=== PATIENT | female | born 1940 | race Caucasian/White ===

== ENCOUNTER → 2023-05-24 14:30 | Outpatient (REF) | payer MEDICARE, OTHER, SELFPAY ==
[2023-05-24 15:01] LABS: Urine Albumin Negative (Neg - Trace); Urine Bilirubin Negative (Negative); Urine Character Clear (Clear); Urine Color Yellow; Urine Glucose Negative (Negative); Urine Ketone Negative (Negative); Urine Leukocyte Trace (Negative); Urine Nitrite Negative (Negative); Urine Occult Blood 2+ (Negative); Urine Urobilinogen Negative (Neg - 1+)
[2023-05-24 15:08] LABS: Urine Bacteria Few (Negative)
[2023-05-24 15:09] LABS: Urine Red Blood Cell 26-30 /HPF (0-2)
== END ==
LOC: OLABP 14:30
PROVIDERS: ATTENDING PHYSICIAN Internal Medicine
DX: N39.0 Urinary tract infection, site not specified (principal)
CPT/HCPCS: 81003; 81015; 87086

== ENCOUNTER → 2023-06-16 12:22 | Outpatient (REF) | payer MEDICARE, OTHER, SELFPAY ==
[2023-06-16 14:36] LABS: Free T4 1.63 ng/dl (0.78-2.19)
== END ==
LOC: OLABP 12:22
PROVIDERS: ATTENDING PHYSICIAN Internal Medicine
DX: F03.90 Unspecified dementia, unspecified severity, without behavioral disturbance, psychotic disturbance, mood disturbance, and anxiety (principal)
CPT/HCPCS: 36415; 84439; 84443

== ENCOUNTER 2023-08-24 06:35 | Emergency (ER) | payer MEDICARE, OTHER, SELFPAY ==
[2023-08-24 06:35] VITALS: BMI 22.0
[2023-08-24 06:40] VITALS: BP 157/73
--- NOTE | 2023-08-24 06:42 | ED.GENMED ---
History of Present Illness
General
Chief Complaint: Fall
Source: patient
Exam Limitations: none
Time Seen by Provider: 08/24/23 06:40
Travel History
Have you had any contact with someone who has COVID-19?: Unable to Answer
Do you have any symptoms of coronavirus? Fever > 100 degrees, chills, cough, shortness of breath, sore throat, loss of taste or smell, muscle aches, or headache?: No
Symptoms:: head pain
History of Present Illness
History of Present Illness:
See MDM
Past History
Past History
ED Past Medical History: Asthma, HTN, Hypercholesterolemia, Hypothyroidism, Psychiatric and Other
ED Past Surgical History: None and Gynecological
Social History
Tobacco: Non-smoker
Alcohol: None
Drug: None
Personal: Single
Living: [facility]
Employment: Not employed
Phy Exam
Physical Exam
Physical Exam:
See MDM
Course
Orders/Labs/Results
Orders:
Orders
08/24/23 06:42
Electrocardiogram (*1) Urgent
Reason for Study: Fatigue / Weakness
CT Cervical Spine W/o Iv Contr Urgent
Comment:
Reason For Exam: fall, neck pain
CT Head W/o Iv Contrast Urgent
Comment:
Reason For Exam: fall, left forehead injury
EKG- Treatment ONCE
08/24/23 06:47
Complete Blood Count/With Diff Urgent
08/24/23 06:48
Basic Metabolic Panel Urgent
Abnormal Lab Results
08/24/23 08/24/23
06:47 06:48
MCV 80.1 L fL
(81.0-99.0)
Abs Immat Gran (auto) 0.1 H 10^3/uL
(0-0.05)
Immature Gran % 1.0 H %
(0-0.5)
BUN 18 H mg/dl
(7-17)
Creatinine 0.5 L mg/dL
(0.6-1.0)
08/24/23 06:47
08/24/23 06:48
Vital Signs
Initial and Last Documented VS:
Initial Vital Signs
Temp Pulse Resp BP Pulse Ox
98.2 F 57 16 157/73 98
08/24/23 06:40 08/24/23 06:40 08/24/23 06:40 08/24/23 06:40 08/24/23 06:40
Last Documented Vital Signs
Temp Pulse Resp BP Pulse Ox
98.2 F 55 16 144/72 95
08/24/23 06:40 08/24/23 07:00 08/24/23 06:40 08/24/23 07:00 08/24/23 07:00
MDM/Problems Addressed
Differential Diagnosis Includes:
HPI and MDM Narrative:
83-year-old female presenting for evaluation of a fall. This was unwitnessed. She does have a history of dementia. She apparently walked to the nurses station and they noticed a large hematoma to her left forehead. Patient cannot remember
falling. Patient does appear confused and disoriented but EMS stating that nursing staff indicating that she is at her baseline. She apparently is on Eliquis as well.
On exam, she is lying in bed comfortably. There is a cervical collar in place for protection. There is a hematoma to her left forehead. There is no evidence of eye injury. There is a small abrasion to her lower shoulder but she denies any pain
and there is also no bony tenderness in this area nor deformity or step-off.
Given age and mechanism of injury, will obtain CT head and neck. Given that it was unwitnessed, will obtain EKG and basic blood work
Physical exam
General: Well appearing and non-toxic. Lying in bed comfortably
HEENT: protecting airway. Hematoma to left forehead. Pupils equal reactive. EOMI
Neck: Cervical collar in place, supple
CV: No evidence of cyanosis. Regular rate and rhythm
Resp: No accessory muscle use
Abd: Non-distended
Extremities: No deformities. Small abrasion to left shoulder. No tenderness to palpation of all 4 extremities. No tenderness to hips or pelvis
Neuro: alert
Psych: Normal affect
Skin: Intact
Problems Addressed including Acute and Chronic Conditions affecting care:
1. Head injury
Acuity: acute
Prognosis: stable
Details: Will obtain CT head and neck
2. Unwitnessed fall
Acuity: acute
Prognosis: stable
Details: Will obtain EKG and basic
Updates
CT head and neck. Will discharge home
Differential Diagnosis (but not limited to): Skull fracture, hematoma, intracranial hemorrhage, cardiac arrhythmia, hyponatremia
Testing considered: Urinalysis but she denies symptoms and does not appear to be more confused than baseline
Drug therapy (if applicable): OTC meds, please see d/c instruction regarding Rx drugs
Amount and/or Complexity of Data Reviewed
Clinical info obtained from: Patient
External data reviewed: N/A
Labs I independently reviewed (but not limited to): Hemoglobin stable
Radiology: The CT scan was personally and independently reviewed. In addition, official CT report reviewed.
Pulse Ox: not hypoxic
EKG independently reviewed: Sinus bradycardia, normal axis, no STEMI
Independent Beauty Consultant: N/A
Critical Care: N/A
Risk of Complication:
Social Determinants of health: Good social support
Discussed with other providers: N/A
Escalation of Care includes Admit/Obs: After being observed in the Emergency Department, pt stable for discharge.
Occasional wrong word or 'sound a like' substitutions may have occurred due to the inherent limitations of voice recognition software. Read the chart carefully and recognize, using context, where substitutions have occurred.
*Critical Care Note
Total Time (30-74mins, 75-104mins- exclusive of procedures): Not Applicable
ED Attending Note
-
Portions of this chart may have been created with voice recognition software.� Occasional wrong word or��sound alike� substitutions may have occurred due to the inherent limitations of voice recognition software.
Discharge Plan
Departure
Patient Disposition: Home (Routine Discharge)
Date of Disposition: 08/24/23
Time of Disposition: 08:17
Patient with high blood pressure during this ER visit?: Yes
Discharge Problem:
Head injury
Instructions: BLOOD PRESSURE
Prescriptions:
No Action
tamsulosin [Flomax] 0.4 mg capsule
0.4 mg PO DAILY Qty: 20 0RF
quetiapine 25 mg Tablet
25 mg PO BID@1200,1800
fluoxetine 40 mg Capsule
40 mg PO DAILY
acetaminophen [Tylenol] 325 mg Tablet
650 mg PO Q4HPRN PRN (Reason: mild pain)
simvastatin 20 mg Tablet
20 mg PO QPM
levothyroxine [Synthroid] 125 mcg Tablet
125 mcg PO DAILY
docusate sodium [Colace] 100 mg Capsule
100 mg PO BID
Eliquis 5 mg Tablet
5 mg PO BID
memantine 21 mg Capsule,Sprinkle,Er 24hr
21 mg PO QPM
acetaminophen 500 mg Tablet
1,000 mg PO BID
cyanocobalamin (vitamin B-12) [Vitamin B-12] 500 mcg Tablet
1,000 mcg PO DAILY
cholecalciferol (vitamin D3) [Vitamin D3] 25 mcg (1,000 unit) Tablet
50 mcg PO DAILY
amlodipine [Norvasc] 5 mg Tablet
5 mg PO DAILY
montelukast [Singulair] 10 mg Tablet
10 mg PO DAILY
fenofibrate nanocrystallized [Tricor] 145 mg Tablet
145 mg PO DAILY
Referrals:
Vijay Joshi Jr., DO [Family Provider] -
Activity Restrictions/Additional Instructions:
Please return for any worsening symptoms.
You may return at any time if you have further concerns.
Please follow up with your doctor at the first available appointment, preferably this week.
Thank you for choosing [facility].
Interventions
Interventions:
*Risk Screen - Suicide Last Done: 08/24/23 06:40
*General Assessment Last Done: 08/24/23 06:40
*Neglect/Abuse Screening Last Done: 08/24/23 06:40
ED- Fall Risk Assessment Last Done: 08/24/23 07:09
*ED COVID-19 Vaccine History Last Done: 08/24/23 06:40
ED-Musculoskeletal Assessment Last Done: 08/24/23 07:09
ED- Neurological Assessment Last Done: 08/24/23 07:09
ED-Skin Assessment Last Done: 08/24/23 07:09
Discharge Date and Time
Print Language: EMIRATI
[2023-08-24 07:00] VITALS: BP 144/72
[2023-08-24 07:03] LABS: % Basophils 0.6 % (0-2); % Eosinophils 2.7 % (0-6); % Lymphocytes 29.2 % (20.5-51.1); % Monocytes 6.8 % (1.7-9.3); % Neutrophils 59.7 % (42.2-75.2); Absolute Eosinophils 0.1 10^3/uL (0-0.7); Absolute Immature Granulocytes 0.1 10^3/uL (0-0.05); Absolute Lymphocytes 1.4 10^3/uL (1.2-3.4); Absolute Monocytes 0.3 10^3/uL (0.1-0.6); Absolute Neutrophils 2.9 10^3/uL (1.4-6.5); Hematocrit 37.1 % (37.0-47.0); Hemoglobin 12.7 g/dL (12.0-16.0); Mean Corp Hgb Conc. 34.2 g/dL (33.0-37.0); Mean Corpuscular Hgb 27.4 pg (27.0-31.0); Mean Corpuscular Volume 80.1 fL (81.0-99.0); Mean Platelet Volume 9.8 fL (7.4-10.4); Nucleated Red Blood Cells % 0 %; Platelet Count 225 10^3/uL (130-400); Red Blood Cell Count 4.63 10^6/uL (4.20-5.40); Red Cell Dist. Width 14.4 % (11.5-14.5); White Blood Cell Count 4.8 10^3/uL (4.8-10.8)
[2023-08-24 07:33] LABS: Blood Urea Nitrogen 18 mg/dl (7-17); Carbon Dioxide 24 mmol/L (22-30); Chloride 107 mmol/L (98-107); Estimated Creatinine Clearance 65 ml/min; Glucose 88 mg/dl (70-99); Sodium 138 mmol/L (135-145); eGFR > 60.00
[2023-08-24 08:00] VITALS: BP 154/83
[2023-08-24 09:01] VITALS: BP 140/74
== END 2023-08-24 10:58 | disposition home or self-care (01) ==
LOC: EMR 06:35
PROVIDERS: EMERGENCY PHYSICIAN Student in an Organized Health Care Education/Training Program; FAMILY PHYSICIAN Family Medicine
DX: S09.90XA Unspecified injury of head, initial encounter (principal); W19.XXXA Unspecified fall, initial encounter; J45.909 Unspecified asthma, uncomplicated; I10 Essential (primary) hypertension; E78.00 Pure hypercholesterolemia, unspecified; E03.9 Hypothyroidism, unspecified
CPT/HCPCS: 99284; 70450; 72125; 80048; 85025; 93005

== ENCOUNTER → 2023-08-25 12:01 | Outpatient (REF) | payer MEDICARE, OTHER, SELFPAY ==
[2023-08-25 14:07] LABS: TSH Reflex To Free T4 0.62 uIU/ml (0.47-4.68)
== END ==
LOC: OLABP 12:01
PROVIDERS: ATTENDING PHYSICIAN Family Medicine; FAMILY PHYSICIAN Internal Medicine
DX: F03.90 Unspecified dementia, unspecified severity, without behavioral disturbance, psychotic disturbance, mood disturbance, and anxiety (principal)
CPT/HCPCS: 36415; 84443

== ENCOUNTER 2023-09-14 09:42 | Emergency (ER) | payer MEDICARE, OTHER, SELFPAY ==
[2023-09-14 09:45] VITALS: BP 123/82
--- NOTE | 2023-09-14 10:30 | ED.GENMED ---
History of Present Illness
General
Chief Complaint: Musculo-Skeletal Complaint
Source: patient
Exam Limitations: none
Time Seen by Provider: 09/14/23 10:00
Nursing documentation reviewed up to this point in time: agreed with
Travel History
Have you had any contact with someone who has COVID-19?: No
Do you have any symptoms of coronavirus? Fever > 100 degrees, chills, cough, shortness of breath, sore throat, loss of taste or smell, muscle aches, or headache?: No
History of Present Illness
History of Present Illness:
Patient is a 3-year-old female presenting to the ER from [facility]. Patient is awake alert confused trying to answer questions but unable to tell me why she is here. It is documented from [facility] the patient had a unwitnessed fall and
is on Eliquis. It was documented patient right hip pain. Patient is no complaints of pain here. It is reported the patient is old bruising to left face.
Past History
Past History
ED Past Medical History: Asthma, HTN, Hypercholesterolemia, Hypothyroidism, Psychiatric and Other
ED Past Surgical History: None and Gynecological
Social History
Tobacco: Non-smoker
Alcohol: None
Drug: None
Personal: Single
Living: skilled nursing
Employment: Not employed
Review of Systems
Review of Systems
Allergies reviewed?: Yes
Unable to obtain full review of systems at this time due to: dementia
All Other Systems: ROS reviewed and negative except as documented in HPI and ROS
Phy Exam
General Physical Exam
General Presentation: no apparent distress
General age: appears stated age
General Skin: warm and dry
General Habitus: elderly
General Mental: confused
General Hydration: appears well hydrated
Neurological Exam
Neurological Exam: alert and other (attempts to answer questions but confused )
Musculoskeletal Exam
Musculoskeletal Exam: other (Old appearing bruising to left face full range of motion to bilateral lower extremities patient does not wince or grimace in pain full ROM to b/l hips )
Course
Orders/Labs/Results
Orders:
Orders
09/14/23 10:31
CT Head W/o Iv Contrast Urgent
Comment:
Reason For Exam: unwitnessed fall
09/14/23 10:32
Hip, Right 2-3 Views [CR Hip - RT w/wo Pel 2-3 Vw*] Urgent
Comment:
Reason For Exam: trauma
Include a pelvis x-ray?: Yes
Vital Signs
Initial and Last Documented VS:
Initial Vital Signs
Temp Pulse Resp BP Pulse Ox
98.5 F 72 16 123/82 99
09/14/23 09:45 09/14/23 09:45 09/14/23 09:45 09/14/23 09:45 09/14/23 09:45
Last Documented Vital Signs
Temp Pulse Resp BP Pulse Ox
98.5 F 72 16 123/82 99
09/14/23 09:45 09/14/23 09:45 09/14/23 09:45 09/14/23 09:45 09/14/23 09:45
MDM/Problems Addressed
Differential Diagnosis Includes:
Not limited to head injury, hip fracture less likely
MDM/Problems Addressed:
Patient is an 83-year-old female from [facility] with dementia sent for unwitnessed fall. Patient is on Eliquis and is document the patient is old bruising to face however with unwitnessed fall will CT head. Is also documented the patient had
complaints of hip pain however good range of motion will check chest x-ray but likely not fractured.
12:35: No acute findings on x-ray of hip. Again patient has good range of motion does not wince or grimace does not complain of pain to hip area. CAT scan negative. No other acute injuries. Will DC
Chronic conditions affecting care:
Dementia from memory care [facility].
*Radiology
Radiology exam reviewed: radiology read reviewed
*Pulse Oximetry
Patient hypoxic: no
*Critical Care Note
Total Time (30-74mins, 75-104mins- exclusive of procedures): Not Applicable
ED Attending Note
-
Portions of this chart may have been created with voice recognition software.� Occasional wrong word or��sound alike� substitutions may have occurred due to the inherent limitations of voice recognition software.
Discharge Plan
Departure
Patient Disposition: Home (Routine Discharge)
Date of Disposition: 09/14/23
Time of Disposition: 12:41
Patient with high blood pressure during this ER visit?: No
Covid-19: Not Applicable
Discharge Problem:
Fall
Prescriptions:
No Action
tamsulosin [Flomax] 0.4 mg capsule
0.4 mg PO DAILY Qty: 20 0RF
quetiapine 25 mg Tablet
12.5 mg PO DAILY@1300
acetaminophen [Tylenol] 325 mg Tablet
650 mg PO Q6HPRN PRN (Reason: mild pain)
docusate sodium [Colace] 100 mg Capsule
100 mg PO BID
Eliquis 5 mg Tablet
5 mg PO BID
acetaminophen 500 mg Tablet
1,000 mg PO BID
cyanocobalamin (vitamin B-12) [Vitamin B-12] 500 mcg Tablet
1,000 mcg PO DAILY
cholecalciferol (vitamin D3) [Vitamin D3] 25 mcg (1,000 unit) Tablet
25 mcg PO DAILY
amlodipine [Norvasc] 5 mg Tablet
5 mg PO DAILY
montelukast [Singulair] 10 mg Tablet
10 mg PO QPM
quetiapine 25 mg Tablet
37.5 mg PO HS
quetiapine 25 mg Tablet
25 mg PO DAILY
sennosides [senna] 8.6 mg Tablet
17.2 mg PO DAILY
alendronate 70 mg Tablet
70 mg PO FR
lorazepam 0.5 mg Tablet
0.5 mg PO Q8HPRN PRN (Reason: dementia)
lorazepam 0.5 mg Tablet
0.5 mg PO BID
fluoxetine 20 mg Capsule
40 mg PO DAILY
levothyroxine 112 mcg Tablet
112 mcg PO DAILY
psyllium husk 0.4 gram Capsule
0.4 g PO QPM
Salonpas 3.1-10-6 % Adhesive Patch,Medicated
1 patch TOPICAL DAILY
Rx Instructions:
right knee
Referrals:
Vijay Joshi Jr., DO [Family Provider] -
Activity Restrictions/Additional Instructions:
Patient was seen here today for fall. She had no pain with movement of hip and hip x-rays are negative. Head CAT scan was done and negative. Patient stable for discharge back to [facility]
Interventions
Interventions:
*Risk Screen - Suicide Last Done: 09/14/23 09:45
*General Assessment Last Done: 09/14/23 09:45
*Neglect/Abuse Screening Last Done: 09/14/23 09:45
ED-Musculoskeletal Assessment Last Done: 09/14/23 10:58
Discharge Date and Time
Print Language: KOREAN
[2023-09-14 13:58] VITALS: BP 133/84
== END 2023-09-14 14:01 | disposition home or self-care (01) ==
LOC: EMR 09:42
PROVIDERS: EMERGENCY PHYSICIAN Emergency Medicine; FAMILY PHYSICIAN Family Medicine
DX: M25.551 Pain in right hip (principal); S00.83XA Contusion of other part of head, initial encounter; W19.XXXA Unspecified fall, initial encounter; I10 Essential (primary) hypertension; E03.9 Hypothyroidism, unspecified; J45.909 Unspecified asthma, uncomplicated; E78.00 Pure hypercholesterolemia, unspecified; F02.80 Dementia in other diseases classified elsewhere, unspecified severity, without behavioral disturbance, psychotic disturbance, mood disturbance, and anxiety; E55.9 Vitamin D deficiency, unspecified; Z86.711 Personal history of pulmonary embolism; Z79.01 Long term (current) use of anticoagulants; Z88.0 Allergy status to penicillin
CPT/HCPCS: 99284; 70450; 73502

== ENCOUNTER 2023-11-24 09:35 | Emergency (ER) | payer MEDICARE, OTHER, SELFPAY ==
[2023-11-24 09:50] VITALS: BP 118/87
[2023-11-24] MEDS: ZYPREXA 10 MG IM (10:02)
[2023-11-24] MEDS: ATIVAN 1 MG IM ×2 (10:02→15:50)
[2023-11-24 11:49] LABS: % Basophils 0.8 % (0-2); % Eosinophils 1.9 % (0-6); % Monocytes 8.3 % (1.7-9.3); Absolute Eosinophils 0.1 10^3/uL (0-0.7); Absolute Lymphocytes 1.2 10^3/uL (1.2-3.4); Absolute Monocytes 0.3 10^3/uL (0.1-0.6); Absolute Neutrophils 2.1 10^3/uL (1.4-6.5); Hematocrit 35.3 % (37.0-47.0); Hemoglobin 11.9 g/dL (12.0-16.0); Mean Corp Hgb Conc. 33.7 g/dL (33.0-37.0); Mean Corpuscular Hgb 27.4 pg (27.0-31.0); Mean Corpuscular Volume 81.3 fL (81.0-99.0); Mean Platelet Volume 11.1 fL (7.4-10.4); Nucleated Red Blood Cells % 0 %; Platelet Count 260 10^3/uL (130-400); Red Blood Cell Count 4.34 10^6/uL (4.20-5.40); Red Cell Dist. Width 13.4 % (11.5-14.5); White Blood Cell Count 3.8 10^3/uL (4.8-10.8)
[2023-11-24 12:09] LABS: Blood Urea Nitrogen 20 mg/dl (7-17); Calcium 9.4 mg/dl (8.4-10.2); Carbon Dioxide 26 mmol/L (22-30); Chloride 107 mmol/L (98-107); Glucose 94 mg/dl (70-99); Potassium 4.2 mmol/L (3.5-5.1); Sodium 141 mmol/L (135-145); eGFR > 60.00
[2023-11-24 12:29] LABS: Urine Albumin Negative (Neg - Trace); Urine Bilirubin Negative (Negative); Urine Character Clear (Clear); Urine Color Yellow; Urine Glucose Negative (Negative); Urine Ketone Negative (Negative); Urine Leukocyte 2+ (Negative); Urine Nitrite Negative (Negative); Urine Occult Blood 2+ (Negative); Urine Urobilinogen Negative (Neg - 1+)
--- NOTE | 2023-11-24 14:12 | ED.GENMED ---
History of Present Illness
General
Chief Complaint: Change in Mental Status
Source: patient
Exam Limitations: none
Time Seen by Provider: 11/24/23 09:38
Nursing documentation reviewed up to this point in time: agreed with
History of Present Illness
History of Present Illness:
83-year-old female with past with history of previous PE on Eliquis late stage dementia hypertension presenting to the emergency department after having increased agitation at her nursing facility in the dementia unit prior to arrival. They given
extra dose of Ativan last night but unable to control her behavior. They deny any specific concerns otherwise.
Past History
Past History
ED Past Medical History: Asthma, HTN, Hypercholesterolemia, Hypothyroidism, Psychiatric and Other
ED Past Surgical History: None and Gynecological
Social History
Tobacco: Non-smoker
Alcohol: None
Drug: None
Personal: Single
Living: [facility]
Employment: Not employed
Review of Systems
Review of Systems
Allergies reviewed?: Yes
All Other Systems: ROS reviewed and negative except as documented in HPI and ROS
Phy Exam
Physical Exam
Physical Exam:
GENERAL: Alert , somewhat agitated but generally pleasant
EYE: pupils equal and reactive
NECK: Supple, no significant adenopathy.
ENT: o/p clr, mmm.
CARDIAC: Regular rate and rhythm .
LUNGS: Clear breath sounds bilaterally, no acute respiratory distress, no wheezes/rales/rhonchi
ABDOMEN: Soft, without focal tenderness, no r/g, no cvat
NEUROLOGICAL: Alert but not oriented to person place time or current events no focal neuro deficits
SKIN: Warm and dry, skin intact.
MUSCULOSKELETAL: No edema, well perfused.
PSYCH: Patient is confused generally argumentative but cooperative
Course
Orders/Labs/Results
Orders:
Orders
11/24/23 09:45
Lorazepam [Ativan] 1 mg PO NOW STA
Quetiapine Fumarate [Seroquel] 50 mg PO NOW STA
11/24/23 09:54
Lorazepam [Ativan] 1 mg IM NOW STA
Olanzapine [Zyprexa] 10 mg IM NOW STA
11/24/23 09:59
Sterile Water [Sterile Water For Injection] 10 ml .ROUTE .STK-MED ONE
11/24/23 11:18
BMP [Basic Metabolic Panel] Urgent
CBC/With Diff [Complete Blood Count/With Diff] Urgent
Urinalysis Reflex To Culture Urgent
Date Specimen was Collected: 11/24/23
Time Specimen was Collected: 11:10
Urine Microscopic Reflex Cult Urgent
Urine Culture Urgent
ROJELIO Source: U
Specimen Description:
Date Specimen was Collected: 11/24/23
Time Specimen was Collected: 11:10
Abnormal Lab Results
11/24/23
11:18
WBC 3.8 L 10^3/uL
(4.8-10.8)
Hgb 11.9 L g/dL
(12.0-16.0)
Hct 35.3 L %
(37.0-47.0)
MPV 11.1 H fL
(7.4-10.4)
BUN 20 H mg/dl
(7-17)
Ur Occult Blood Reflex 2+ A
(Negative)
Leukocyte Esterase Rfl 2+ A
(Negative)
Urine RBC 7-10 A /HPF
(0-2)
Urine WBC (Reflex) 26-30 A /HPF
(0-5)
11/24/23 11:18
11/24/23 11:18
Vital Signs
Initial and Last Documented VS:
Initial Vital Signs
Pulse Resp BP Pulse Ox
82 20 118/87 97
11/24/23 09:50 11/24/23 09:50 11/24/23 09:50 11/24/23 09:50
Last Documented Vital Signs
Pulse Resp BP Pulse Ox
82 20 118/87 97
11/24/23 09:50 11/24/23 09:50 11/24/23 09:50 11/24/23 09:50
MDM/Problems Addressed
MDM/Problems Addressed:
83-year-old female presenting to the emergency department due to increased agitation from the dementia unit at [facility]. Here vital signs are normal she has no specific complaints is able to answer directed questioning but is confused with current
events person place and time. She specifically denies any or any symptoms at this time other than repeatedly requesting to leave and be left alone. Concerning she was somewhat agitated and due to the described agitation at the nursing facility
patient was given a dose of Zyprexa as well as Ativan. She seemed to respond well to this and was very cooperative and quite pleasant for the remainder of the ER stay was eating food and smiling. She followed all commands at that point. The case
was discussed with the nursing facility they requested getting additional testing as well as urine testing. Urinalysis not consistent or convincing of urinary tract infection concerning large amount of squamous epithelial cells. Will hold
antibiotics pending culture. Otherwise stable for outpatient management.
*Critical Care Note
Total Time (30-74mins, 75-104mins- exclusive of procedures): Not Applicable
ED Attending Note
-
Portions of this chart may have been created with voice recognition software.� Occasional wrong word or��sound alike� substitutions may have occurred due to the inherent limitations of voice recognition software.
Discharge Plan
Departure
Patient Disposition: Home (Routine Discharge)
Date of Disposition: 11/24/23
Time of Disposition: 15:31
Patient with high blood pressure during this ER visit?: No
Condition: Good
Covid-19: Not Applicable
Discharge Problem:
Agitation due to dementia
Instructions: Dementia (DC)
Prescriptions:
No Action
tamsulosin [Flomax] 0.4 mg capsule
0.4 mg PO DAILY Qty: 20 0RF
quetiapine 25 mg Tablet
12.5 mg PO DAILY@1300
acetaminophen [Tylenol] 325 mg Tablet
650 mg PO Q6HPRN PRN (Reason: mild pain)
docusate sodium [Colace] 100 mg Capsule
100 mg PO BID
Eliquis 5 mg Tablet
5 mg PO BID
acetaminophen 500 mg Tablet
1,000 mg PO BID
cyanocobalamin (vitamin B-12) [Vitamin B-12] 500 mcg Tablet
1,000 mcg PO DAILY
cholecalciferol (vitamin D3) [Vitamin D3] 25 mcg (1,000 unit) Tablet
25 mcg PO DAILY
amlodipine [Norvasc] 5 mg Tablet
5 mg PO DAILY
montelukast [Singulair] 10 mg Tablet
10 mg PO QPM
quetiapine 25 mg Tablet
37.5 mg PO HS
quetiapine 25 mg Tablet
25 mg PO DAILY
sennosides [senna] 8.6 mg Tablet
17.2 mg PO DAILY
alendronate 70 mg Tablet
70 mg PO FR
lorazepam 0.5 mg Tablet
0.5 mg PO Q8HPRN PRN (Reason: dementia)
lorazepam 0.5 mg Tablet
0.5 mg PO BID
fluoxetine 20 mg Capsule
40 mg PO DAILY
levothyroxine 112 mcg Tablet
112 mcg PO DAILY
psyllium husk 0.4 gram Capsule
0.4 g PO QPM
Salonpas 3.1-10-6 % Adhesive Patch,Medicated
1 patch TOPICAL DAILY
Rx Instructions:
right knee
Referrals:
Vijay Joshi Jr., DO [Family Provider] -
Activity Restrictions/Additional Instructions:
Shirley came to the emergency department today with concerns of agitation. Here she had a reassuring assessment. Urine cultures pending otherwise she will likely need medication adjustment. She did receive Zyprexa here and Ativan with significant
improved symptoms. Please have her return for any worsening, new or concerning symptoms.
Interventions
Interventions:
*Risk Screen - Suicide Last Done: 11/24/23 10:18
*General Assessment Last Done: 11/24/23 10:18
*Neglect/Abuse Screening Last Done: 11/24/23 10:18
ED- Fall Risk Assessment Last Done: 11/24/23 10:18
*ED COVID-19 Vaccine History Last Done: 11/24/23 10:18
ED- Neurological Assessment Last Done: 11/24/23 10:18
ED- Cardiac Assessment Last Done: 11/24/23 10:18
ED Swallowing Screen Last Done: 11/24/23 10:18
Discharge Date and Time
Print Language: PORTUGUESE
[2023-11-24 14:22] LABS: Urine Mucus Few; Urine Squamous Cell >30 /LPF (Few); Urine Urothelial Cell >30 /LPF (FEW)
[2023-11-24 14:24] LABS: Urine White Cell 26-30 /HPF (0-5)
[2023-11-24 14:25] LABS: Urine Amorphous Seen
== END 2023-11-24 16:17 | disposition home or self-care (01) ==
LOC: EMR 09:35
PROVIDERS: Physician Assistant; EMERGENCY PHYSICIAN Emergency Medicine; FAMILY PHYSICIAN Family Medicine
DX: F03.911 Unspecified dementia, unspecified severity, with agitation (principal); E03.9 Hypothyroidism, unspecified; E78.00 Pure hypercholesterolemia, unspecified; I10 Essential (primary) hypertension; J45.909 Unspecified asthma, uncomplicated; Z79.01 Long term (current) use of anticoagulants; Z86.711 Personal history of pulmonary embolism; Z88.0 Allergy status to penicillin
CPT/HCPCS: 99284; 96372 ×3; 80048; 81003; 81015; 85025; 87086; J2358

== ENCOUNTER 2023-12-12 04:32 | Emergency (ER) | payer MEDICARE, OTHER, SELFPAY ==
[2023-12-12 04:47] VITALS: BP 134/74
--- NOTE | 2023-12-12 05:15 | ED.GENMED ---
History of Present Illness
<NOAH Farrell - Last Filed: 12/12/23 05:20>
General
Chief Complaint: Fall
Source: patient
Exam Limitations: dementia
Time Seen by Provider: 12/12/23 04:33
Nursing documentation reviewed up to this point in time: agreed with
History of Present Illness
History of Present Illness:
Pt is a pleasantly demented 83 y/o F from [facility] dementia unit with report of unwitnessed fall. Upon interview, the pt remembers the fall but does not have any complaints of pain or injury. There was no reported head injury and there were no signs
of injury or trauma.
<Ulises Blackwell DO - Last Filed: 12/12/23 05:45>
General
Source: ambulance crew
History of Present Illness
History of Present Illness:
Pt is a pleasantly demented 83 y/o F from [facility] dementia unit with report of unwitnessed fall. Upon interview, the pt remembers the fall but does not have any complaints of pain or injury. There was no reported head injury and there were no signs
of injury or trauma.
05 35 83-year-old female presents after she had unwitnessed fall at a dementia unit [facility]. No reported signs of injury by EMS. Patient offers no complaints. She specifically denies headache, neck pain, back pain, chest pain, abdominal pain.
Past History
<NOAH Farrell - Last Filed: 12/12/23 05:20>
Past History
ED Past Medical History: Asthma, HTN, Hypercholesterolemia, Hypothyroidism, Psychiatric and Other
ED Past Surgical History: None and Gynecological
Social History
Tobacco: Non-smoker
Alcohol: None
Drug: None
Personal: Single
Living: snf
Employment: Not employed
Review of Systems
<NOAH Farrell - Last Filed: 12/12/23 05:20>
Review of Systems
Constitutional: Reports no symptoms
EENT: Reports no symptoms
Respiratory: Reports no symptoms
Cardiac: Reports no symptoms
ABD/GI: Reports no symptoms
: Reports no symptoms
Musculoskeletal: Reports no symptoms
Skin: Reports no symptoms
Neurological: Reports no symptoms
Endocrine: Reports no symptoms
Hematologic/Lymphatic: Reports no symptoms
Psychiatric: Reports no symptoms
Phy Exam
<ST JamiPA - Last Filed: 12/12/23 05:20>
General Physical Exam
General Presentation: well appearing and no apparent distress
General age: appears stated age
General Skin: warm and dry
General Habitus: normal
General Mental: confused and usual mental status
General Hydration: appears well hydrated
ENT Exam
ENT Exam: EOMI and neck supple
Eye Exam
Eye Exam: PERRL, cornea clear, conjunctiva normal, globe normal and visual montes normal
Cardiovascular Exam
Cardiovascular Exam: regular rate/rhythm and normal peripheral pulses
Pulmonary Exam
Pulmonary Exam: lungs clear, no respiratory distress and chest non tender
Gastrointestinal Exam
Gastrointestinal Exam: soft and non distended
Neurological Exam
Neurological Exam: CN II-XII intact, no sensory deficits, speech normal and confused
Musculoskeletal Exam
Musculoskeletal Exam: neuro vasc intact
Skin Exam
Skin Exam: normal color and warm/dry
Psychiatric Exam
Psychiatric Exam: normal mood/affect
<Ulises Blackwell DO - Last Filed: 12/12/23 05:45>
Physical Exam
Physical Exam:
CONSTITUTIONAL Vital signs reviewed, Patient alert and oriented to person, place. Well-appearing
HEAD atraumatic, normocephalic. Small benign-appearing 1 cm cyst to the left forehead
EYES eyelids normal to inspection, Extraocular muscles intact, Conjunctiva normal, Sclera normal.
NECK normal range of motion, Trachea midline, no jugular venous distention. No midline tenderness
RESP no respiratory distress
BACK No obvious deformities, no midline tenderness
UPPER EXTREMITY Gross Range of motion normal, gross motor strength normal
LOWER EXTREMITY Gross range of motion normal, Gross motor strength normal. Normal range of motion of bilateral knees and hips
NEURO Speech normal, No focal motor deficits include, Cranial Nerves intact to screening exam.
SKIN Skin warm, dry, and normal in color.
Course
<NOAH Farrell - Last Filed: 12/12/23 05:20>
Orders/Labs/Results
Orders:
Orders
12/12/23 04:34
CT Head W/o Iv Contrast Urgent
Comment:
Reason For Exam: fall
Vital Signs
Initial and Last Documented VS:
Initial Vital Signs
Temp Pulse Resp BP Pulse Ox
97.9 F 60 17 134/74 96
12/12/23 04:47 12/12/23 04:47 12/12/23 04:47 12/12/23 04:47 12/12/23 04:47
Last Documented Vital Signs
Temp Pulse Resp BP Pulse Ox
97.9 F 60 17 134/74 96
12/12/23 04:47 12/12/23 04:47 12/12/23 04:47 12/12/23 04:47 12/12/23 04:47
<Ulises Blackwell DO - Last Filed: 12/12/23 05:45>
Orders/Labs/Results
Orders:
Orders
12/12/23 04:34
CT Head W/o Iv Contrast Urgent
Comment:
Reason For Exam: fall
Vital Signs
Initial and Last Documented VS:
Initial Vital Signs
Temp Pulse Resp BP Pulse Ox
97.9 F 60 17 134/74 96
12/12/23 04:47 12/12/23 04:47 12/12/23 04:47 12/12/23 04:47 12/12/23 04:47
Last Documented Vital Signs
Temp Pulse Resp BP Pulse Ox
97.9 F 60 17 134/74 96
12/12/23 04:47 12/12/23 04:47 12/12/23 04:47 12/12/23 04:47 12/12/23 04:47
<NOAH Farrell - Last Filed: 12/12/23 05:20>
MDM/Problems Addressed
Differential Diagnosis Includes:
Unwitnessed fall
<Ulises Blackwell DO - Last Filed: 12/12/23 05:45>
MDM/Problems Addressed
MDM/Problems Addressed:
Fall, possible head injury
<NOAH Farrell - Last Filed: 12/12/23 05:20>
*Critical Care Note
Total Time (30-74mins, 75-104mins- exclusive of procedures): Not Applicable
<Ulises Blackwell DO - Last Filed: 12/12/23 05:45>
*Radiology
Radiology exam reviewed: preliminary read by ED provider (No obvious intracranial hemorrhage)
*Pulse Oximetry
Patient hypoxic: no
Data Reviewed
Source: patient and ambulance crew
<Ulises Blackwell DO - Last Filed: 12/12/23 05:45>
Patient Management
Escalation/DeEscalation of care consider admission/obs:
Patient appears well. No apparent injury by exam. No complaints. CT head negative. Okay for discharge
ED Attending Note
<NOAH Farrell - Last Filed: 12/12/23 05:20>
-
Portions of this chart may have been created with voice recognition software.� Occasional wrong word or��sound alike� substitutions may have occurred due to the inherent limitations of voice recognition software.
Discharge Plan
Departure
Patient Disposition: Home (Routine Discharge)
Date of Disposition: 12/12/23
Time of Disposition: 05:44
Patient with high blood pressure during this ER visit?: No
Discharge Problem:
Fall
Instructions: Preventing falls in adults
Prescriptions:
No Action
tamsulosin [Flomax] 0.4 mg capsule
0.4 mg PO DAILY Qty: 20 0RF
quetiapine 25 mg Tablet
12.5 mg PO DAILY@1300
acetaminophen [Tylenol] 325 mg Tablet
650 mg PO Q6HPRN PRN (Reason: mild pain)
docusate sodium [Colace] 100 mg Capsule
100 mg PO BID
Eliquis 5 mg Tablet
5 mg PO BID
acetaminophen 500 mg Tablet
1,000 mg PO BID
cyanocobalamin (vitamin B-12) [Vitamin B-12] 500 mcg Tablet
1,000 mcg PO DAILY
cholecalciferol (vitamin D3) [Vitamin D3] 25 mcg (1,000 unit) Tablet
25 mcg PO DAILY
amlodipine [Norvasc] 5 mg Tablet
5 mg PO DAILY
montelukast [Singulair] 10 mg Tablet
10 mg PO QPM
quetiapine 25 mg Tablet
37.5 mg PO HS
quetiapine 25 mg Tablet
25 mg PO DAILY
sennosides [senna] 8.6 mg Tablet
17.2 mg PO DAILY
alendronate 70 mg Tablet
70 mg PO FR
lorazepam 0.5 mg Tablet
0.5 mg PO Q8HPRN PRN (Reason: dementia)
lorazepam 0.5 mg Tablet
0.5 mg PO BID
fluoxetine 20 mg Capsule
40 mg PO DAILY
levothyroxine 112 mcg Tablet
112 mcg PO DAILY
psyllium husk 0.4 gram Capsule
0.4 g PO QPM
Salonpas 3.1-10-6 % Adhesive Patch,Medicated
1 patch TOPICAL DAILY
Rx Instructions:
right knee
Referrals:
Vijay Joshi Jr., DO [Family Provider] -
Activity Restrictions/Additional Instructions:
Return immediately for vomiting, changes in mentation, lethargy, weakness of any kind or any other concerns.
Interventions
Interventions:
*Risk Screen - Suicide Last Done: 12/12/23 04:47
*General Assessment Last Done: 12/12/23 04:47
*Neglect/Abuse Screening Last Done: 12/12/23 04:47
Discharge Date and Time
Print Language: POLISH
[2023-12-12 06:14] VITALS: BP 138/77
[2023-12-12 06:59] VITALS: BP 132/78
== END 2023-12-12 07:01 | disposition home or self-care (01) ==
LOC: EMR 04:32
PROVIDERS: EMERGENCY PHYSICIAN Emergency Medicine; FAMILY PHYSICIAN Family Medicine
DX: Z04.3 Encounter for examination and observation following other accident (principal); F03.90 Unspecified dementia, unspecified severity, without behavioral disturbance, psychotic disturbance, mood disturbance, and anxiety; W19.XXXA Unspecified fall, initial encounter; L72.8 Other follicular cysts of the skin and subcutaneous tissue; I10 Essential (primary) hypertension; E78.00 Pure hypercholesterolemia, unspecified; E03.9 Hypothyroidism, unspecified; J45.909 Unspecified asthma, uncomplicated; E55.9 Vitamin D deficiency, unspecified; Z86.711 Personal history of pulmonary embolism; Z79.01 Long term (current) use of anticoagulants; Z88.0 Allergy status to penicillin
CPT/HCPCS: 99284; 70450

== ENCOUNTER 2023-12-22 21:42 | Emergency (ER) | payer MEDICARE, OTHER, SELFPAY ==
[2023-12-22 21:52] VITALS: BP 130/72
--- NOTE | 2023-12-22 21:58 | ED.GENMED ---
History of Present Illness
General
Chief Complaint: Fall
Source: assisted
Exam Limitations: dementia
Time Seen by Provider: 12/22/23 21:48
History of Present Illness
History of Present Illness:
This is a 83 year old female that is brought in by ambulance from [facility]. Called and spoke with Lalit and was told that the fall tonight at 5pm was witnessed. States that she was in the sitting area in a chair and she just fell
forward hitting her head. States that the patient is on Eliquis and the PCP wanted her set in. Questioned about the bruising on the right hip and thigh and Lalit states that she was just told about this. States that the patient c/o a headache after
the fall and was given Tylenol. Denies any fever, chills, chest pain, SOB, abd pain, nausea, vomiting, diarrhea, dizziness.
Past History
Past History
ED Past Medical History: Asthma, HTN, Hypercholesterolemia, Hypothyroidism, Psychiatric (Depression) and Other (Dementia, PE, Pulmonary edema, Constipation, Urinary retention, Vit D deficiency, )
ED Past Surgical History: None and Gynecological
Social History
Tobacco: Non-smoker
Alcohol: None
Drug: None
Personal: Single
Living: assisted
Employment: Not employed
Review of Systems
Review of Systems
Other source history: assisted
All Other Systems: ROS reviewed and negative except as documented in HPI and ROS
Constitutional: Reports no symptoms; Denies fever or chills
EENT: Reports no symptoms
Respiratory: Reports no symptoms; Denies cough or trouble breathing
Cardiac: Reports no symptoms; Denies chest pain
ABD/GI: Reports no symptoms; Denies abdominal pain, vomiting or diarrhea
: Reports no symptoms
Musculoskeletal: Reports no symptoms
Skin: Reports no symptoms
Neurological: Reports headache (after fall and was given Tylenol); Denies dizzy
Psychiatric: Reports no symptoms
Phy Exam
General Physical Exam
General Presentation: no apparent distress
General age: appears stated age
General Skin: warm and dry
General Habitus: elderly
General Mental: usual mental status
General Hydration: appears well hydrated
ENT Exam
ENT Exam: TM's normal, pharynx normal and neck supple
Cardiovascular Exam
Cardiovascular Exam: regular rate/rhythm and normal peripheral pulses
Pulmonary Exam
Pulmonary Exam: lungs clear, no respiratory distress, no rales, chest non tender, no crackles, no rhonchi, no wheezing and no cough
Gastrointestinal Exam
Gastrointestinal Exam: normal bowel sounds, non tender, soft, no organomegaly, no pulsatile mass and non distended
Musculoskeletal Exam
Musculoskeletal Exam: full ROM and edema (Slight lower leg edema )
Skin Exam
Skin Exam: normal color, warm/dry, no petechia and other (Contusion on the right upper thigh and hip, appears old. Patient able to extend legs, no tenderness with palpation. leg is not shortened or Rotated. skin abrasion left lateral scalp)
Psychiatric Exam
Psychiatric Exam: normal mood/affect
Course
Orders/Labs/Results
Orders:
Orders
12/22/23 21:57
CT Head W/o Iv Contrast Urgent
Comment:
Reason For Exam: fall forward from chair, hitting head. On eliquis
Hip, Right 2-3 Views [CR Hip - RT w/wo Pel 2-3 Vw*] Urgent
Comment:
Reason For Exam: bruising, recent fall,
Include a pelvis x-ray?: Yes
12/22/23 22:05
CT Cervical Spine W/o Iv Contr Urgent
Comment:
Reason For Exam: fall out of chair
Vital Signs
Initial and Last Documented VS:
Initial Vital Signs
Temp Pulse Resp BP Pulse Ox
97.4 F 60 18 130/72 100
12/22/23 21:52 12/22/23 21:52 12/22/23 21:52 12/22/23 21:52 12/22/23 21:52
Last Documented Vital Signs
Temp Pulse Resp BP Pulse Ox
97.4 F 60 17 130/72 95
12/22/23 21:52 12/22/23 21:52 12/22/23 22:58 12/22/23 21:52 12/22/23 22:58
MDM/Problems Addressed
Differential Diagnosis Includes:
accidental fall hitting head
MDM/Problems Addressed:
This is a 83 year old female that comes in from [facility] after falling from a chair. This fall was witnessed. Spoke with Lalit the nurse at [facility] who had spoke with the PCP and they wanted patient sent in due to her being on Eliquis.
Will get CT of the head and cervical spine and x-ray of the right hip area.
Cervical spine cont- at C3/C4 and C4/C5. Severe multilevel neural foraminal narrowing. Mild spinal cord compression and central canal stenosis at multiple levels.
Will discharge patient back to [facility].
Chronic conditions affecting care:
Dementia
Acute Exacerbation and/or Progression of Chronic Illness:
NA
*Radiology
Radiology exam reviewed: preliminary read by ED provider (Right hip= Negative for fracture or dislocation. Degenerative changes. ), radiology read reviewed (CT head-NO CT evidence for acute intracranial hemorrhage. Moderate diffuse cerebral and
cerebellar volume loss. Moderate to severe white matter leukoaraiosis in the frontal and parietal lobes. Hip-Acute traumatic soft tissue contusion lateral to the right greater trochanter. No radiographic ), all reviewed NAD by ED Provider (Hip
cont- No radiographic evidence for acute proximal femoral or pelvic fracture. Moderate bilateral osteoarthritis of the hips (right greater than left). Severe chondrocalcinosis in the hips and moderate calcification around the pubic symphysis.
Osteoporosis Cervical spine-No CT evidence for ) and other (Cervical spine cont-No cervical spine fractures. 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
disease. Severe discogenic degenerative disease at C4/C5, C5/C6, and C6'C7. Severe right-sided facet joint arthrosis)
*Pulse Oximetry
Patient hypoxic: no
*EKG
Interpreted by ED Provider?: NA
Rate: EKG- N/A
*Vegetable Thinner Interpretation
Rate: Vegetable Thinner- N/A
*Critical Care Note
Total Time (30-74mins, 75-104mins- exclusive of procedures): Not Applicable
ED Attending Note
-
Portions of this chart may have been created with voice recognition software.� Occasional wrong word or��sound alike� substitutions may have occurred due to the inherent limitations of voice recognition software.
Discharge Plan
Departure
Patient Disposition: Long-Term/SNF
Date of Disposition: 12/22/23
Time of Disposition: 23:46
Patient with high blood pressure during this ER visit?: Yes
Condition: Good
Covid-19: Not Applicable
Discharge Problem:
Accidental fall from chair
Instructions: Contusion (DC), Preventing falls in adults, Skin Abrasions (DC), BLOOD PRESSURE
Prescriptions:
No Action
tamsulosin [Flomax] 0.4 mg capsule
0.4 mg PO DAILY Qty: 20 0RF
quetiapine 25 mg Tablet
12.5 mg PO DAILY@1300
acetaminophen [Tylenol] 325 mg Tablet
650 mg PO Q6HPRN PRN (Reason: mild pain)
docusate sodium [Colace] 100 mg Capsule
100 mg PO BID
Eliquis 5 mg Tablet
5 mg PO BID
acetaminophen 500 mg Tablet
1,000 mg PO BID
cyanocobalamin (vitamin B-12) [Vitamin B-12] 500 mcg Tablet
1,000 mcg PO DAILY
cholecalciferol (vitamin D3) [Vitamin D3] 25 mcg (1,000 unit) Tablet
25 mcg PO DAILY
amlodipine [Norvasc] 5 mg Tablet
5 mg PO DAILY
montelukast [Singulair] 10 mg Tablet
10 mg PO QPM
quetiapine 25 mg Tablet
37.5 mg PO HS
quetiapine 25 mg Tablet
25 mg PO DAILY
sennosides [senna] 8.6 mg Tablet
17.2 mg PO DAILY
alendronate 70 mg Tablet
70 mg PO FR
lorazepam 0.5 mg Tablet
0.5 mg PO Q8HPRN PRN (Reason: dementia)
lorazepam 0.5 mg Tablet
0.5 mg PO BID
fluoxetine 20 mg Capsule
40 mg PO DAILY
levothyroxine 112 mcg Tablet
112 mcg PO DAILY
psyllium husk 0.4 gram Capsule
0.4 g PO QPM
Salonpas 3.1-10-6 % Adhesive Patch,Medicated
1 patch TOPICAL DAILY
Rx Instructions:
right knee
Referrals:
Vijay Joshi Jr., [Family Provider] - Call in 1-3 days for appt
Activity Restrictions/Additional Instructions:
Patient CT of the head and cervical spine is negative for any acute process. The X-ray of the right hip and pelvis is negative for any fractures. Tylenol as needed for any headache pain. Follow up with the family doctor for recheck as needed. IF YOU
HAVE ANY OTHER CONCERNS PLEASE RETURN TO THE EMERGENCY ROOM.
Interventions
Interventions:
*Risk Screen - Suicide Last Done: 12/22/23 21:52
*General Assessment Last Done: 12/22/23 21:52
*Neglect/Abuse Screening Last Done: 12/22/23 21:52
ED- Fall Risk Assessment Last Done: 12/22/23 21:57
ED-Musculoskeletal Assessment Last Done: 12/22/23 21:57
ED- Neurological Assessment Last Done: 12/22/23 21:57
ED-Skin Assessment Last Done: 12/22/23 21:57
Discharge Date and Time
Print Language: UPPER SORBIAN
[2023-12-23 00:28] VITALS: BP 120/64
[2023-12-23 02:39] VITALS: BP 118/64
== END 2023-12-23 02:41 ==
LOC: EMR 21:42
PROVIDERS: EMERGENCY PHYSICIAN Emergency Medicine; FAMILY PHYSICIAN Family Medicine
DX: S09.90XA Unspecified injury of head, initial encounter (principal); S70.01XA Contusion of right hip, initial encounter; W07.XXXA Fall from chair, initial encounter; I10 Essential (primary) hypertension; F03.90 Unspecified dementia, unspecified severity, without behavioral disturbance, psychotic disturbance, mood disturbance, and anxiety; Z79.01 Long term (current) use of anticoagulants
CPT/HCPCS: 99284; 70450; 72125; 73502